=== PATIENT | male | born 1985 | race Caucasian/White ===

== ENCOUNTER 2016-09-03 13:32 | Emergency (ER) | payer OTHER ==
[2016-09-03 13:43] VITALS: BP 137/77
[2016-09-03] MEDS ORDERED: Aspirin 81 MG Tab.Chew PO ONE (14:03)
[2016-09-03] MEDS ORDERED: Sodium Chloride 0.9% 10 ML Syringe FLUSH PRN (14:03)
--- NOTE | 2016-09-03 14:09 | EDM.PDOC ---
ED HISTORY OF PRESENT ILLNESS - General Chief Complaint: Chest Pain Stated Complaint: CHEST PAIN X 2 HOURS Time Seen by Provider: 09/03/16 13:51 Source of Information: Reports: Patient History Limitations: Reports: No limitations - History of Present Illness INITIAL COMMENTS - FREE TEXT/NARRATIVE: Patient is a 22-year-old male presents ED complaining of substernal chest discomfort with radiation to his left neck, left shoulder/arm, and back. States discomfort described as a sharp dull achy sensation worsened with sitting also taking a deep breath. There is no aggravation with her she normally in his upper extremities. States this came on this morning at approximately 9:[address] Patient works as a chief deputy. Discomfort persisted which is abnormal. He does have a history of similar symptoms in the past that resolved after a few minutes. States he became concerned because of the chronicity of it. Thus the patient is here for cardiac rule out. States the pain is rated a 4/10 at its peak. Currently the pain is a 0/10 has resolved with admission to the ED. Denies any diaphoresis, shortness of breath, nausea vomiting, fever/chills, dizziness, recent trauma/ activities, or acid reflux. He has no previous past medical history and is currently taking no medications. Patient does not smoke and only occasionally utilizes alcohol. Denies any first degree relatives with heart disease. Timing/Duration: Reports: Intermittent, Resolved prior to arrival Severity: moderate Location, General: Reports: neck, chest, back, upper extremity, left Quality: Reports: Ache, Sharp Improves with: Reports: None Worsens with: Reports: Other (Sitting) Context, General: Reports: Other (None stated) Associated Symptoms (General): Reports: chest pain. Denies: cough, fever/chills , malaise, nausea/vomiting, shortness of breath Treatments END WORKER: Reports: Other (see below) (None stated) - Related Data Allergies/ADRs: Allergies Allergy/AdvReac Type Severity Reaction Status Date / Time Sulfa (Sulfonamide Allergy Cannot Verified 08/30/15 02:04 Antibiotics) Remember Home Meds: Home Meds . [No Known Home Meds] 09/03/16 [History] Past Medical History - Past Health History Medical/Surgical History: Denies Medical/Surgical History Musculoskeletal History: Reports: Other (see below) Other Musculoskeletal History: left ankle surgery x 3 Endocrine/Metabolic History: Reports: Obesity/BMI 30+ - Infectious Disease History Infectious Disease History: Reports: Chicken pox - Past Surgical History GI Surgical History: Reports: Appendectomy Endocrine Surgical History: Reports: None Social & Family History - Family History HEENT: Reports: Cataract, Other (see below) Other HEENT Family History: grandma Respiratory: Reports: COPD, Other (see below) Other Respiratory Family Hisory: mother Neurological: Reports: Alzheimers disease, Other (see below) Other Neurological Family History: grandpa Psychiatric: Reports: ADD, Bipolar, Schizophrenia, Other (see below) Other Psychiatric Family History: younger brother Oncologic: Reports: Skin, Other (see below) Other Oncologic Family History: grandma - Tobacco Use Smoking Status *Q: Former Smoker Years of Tobacco use: 10 Packs/Tins Daily: 0.1 Used Tobacco, but Quit: Yes Month Tobacco Last Used: 1 month - Caffeine Use Caffeine Use: Reports: Coffee - Alcohol Use Days Per Week of Alcohol Use: 1 Number of Drinks Per Day: 0 Total Drinks Per Week: 0 - Recreational Drug Use Recreational Drug Use: No ED ROS GENERAL - Review of Systems Review Of Systems: See Below Constitutional: Reports: no symptoms HEENT: Reports: No symptoms Respiratory: Reports: Pleuritic Chest Pain. Denies: Shortness of Breath, Cough , Sputum Cardiovascular: Reports: Chest pain. Denies: Dyspnea on exertion, Palpitations GI/Abdominal: Reports: No symptoms Musculoskeletal: Reports: neck pain, back pain, other (Left arm) Neurological: Reports: No Symptoms ED EXAM, GENERAL - Physical Exam Exam: See Below Exam Limited By: No limitations General Appearance: alert, WD/WN, no apparent distress Ears: hearing grossly normal Nose: normal inspection Throat/Mouth: Normal voice, No airway compromise Neck: normal inspection, supple, non-tender, full range of motion. No: carotid bruit Respiratory/Chest: no respiratory distress, lungs clear, normal breath sounds, no accessory muscle use, chest non-tender Cardiovascular: normal peripheral pulses, regular rate, rhythm, no murmur Peripheral Pulses: 2+: radial (R), 4+: dorsalis pedis (R) GI/Abdominal: normal bowel sounds, soft, non tender, no organomegaly, no distention, no abnormal bruit, other (Negative lee, mcburney, and epigastric pain. ) Back Exam: normal inspection, full range of motion. No: CVA tenderness (L), CVA tenderness (R) Extremities: normal inspection, normal range of motion, non-tender, no pedal edema, normal capillary refill Neurological: alert, oriented, CN II-XII intact, normal cognition, no motor/ sensory deficits Psychiatric: normal affect, normal mood Skin Exam: Warm, Dry, Intact, Normal color Course - Vital Signs Last Recorded V/S: Last Vital Signs Temp 97.9 F 09/03/16 13:41 Pulse 73 09/03/16 13:41 Resp 18 09/03/16 13:41 BP 137/77 09/03/16 13:41 Pulse Ox 96 09/03/16 13:41 - Orders/Labs/Meds Orders: Active Orders 24 hr Category Date Time Status EKG 12 Lead [EKG Documentation Completion] [] STAT Care 09/03/16 14:08 Active Peripheral IV Care [RC] . DIRECTED Care 09/03/16 14:03 Active Sodium Chloride 0.9% [Saline Flush] Med 09/03/16 14:03 Active 10 ml FLUSH ASDIRECTED PRN Peripheral IV Insertion Adult [OM.PC] Stat Oth 09/03/16 14:03 Ordered Medication Orders Sodium Chloride (Saline Flush) 10 ml FLUSH ASDIRECTED PRN PRN Reason: Keep Vein Open Last Admin: 09/03/16 14:27 Dose: 10 ml Labs: Laboratory Tests 09/03/16 09/03/16 Range/Units 14:25 14:25 WBC 14.73 H (4.23-9.07) K/mm3 RBC 5.43 (4.63-6.08) M/mm3 Hgb 15.6 (13.7-17.5) gm/L Hct 46.9 (40.1-51.0) % MCV 86.4 (79.0-92.2) fl MCH 28.7 (25.7-32.2) pg MCHC 33.3 (32.2-35.5) g/dl RDW Std Deviation 41.3 (35.1-43.9) fL Plt Count 320 (163-337) K/mm3 MPV 9.0 L (9.4-12.3) fl Neut % (Auto) 63.1 (34.0-67.9) % Lymph % (Auto) 27.0 (21.8-53.1) % [place] % (Auto) 8.3 (5.3-12.2) % Eos % (Auto) 1.1 (0.8-7.0) Baso % (Auto) 0.3 (0.1-1.2) % Neut # (Auto) 9.29 H (1.78-5.38) K/mm3 Lymph # (Auto) 3.98 H (1.32-3.57) K/mm3 [place] # (Auto) 1.22 H (0.30-0.82) K/mm3 Eos # (Auto) 0.16 (0.04-0.54) K/mm3 Baso # (Auto) 0.05 (0.01-0.08) K/mm3 Sodium 141 (136-145) mEq/L Potassium 4.0 (3.5-5.1) mEq/L Chloride 105 (98-107) mEq/L Carbon Dioxide 26 (21-32) mEq/L Anion Gap 14.0 (5-15) BUN 12 (7-18) mg/dL Creatinine 0.8 (0.7-1.3) mg/dL Est Cr Clr Drug Dosing 133.00 mL/min Estimated GFR (MDRD) > 60 (>60) mL/min BUN/Creatinine Ratio 15.0 (14-18) Glucose 82 (74-106) mg/dL Calcium 9.8 (8.5-10.1) mg/dL Total Bilirubin 0.4 (0.2-1.0) mg/dL AST 38 H (15-37) U/L ALT 82 H (16-63) U/L Alkaline Phosphatase 70 (46-116) U/L Troponin I < 0.017 (0.00-0.056) ng/mL C-Reactive Protein 0.8 (<1.0) mg/dL Total Protein 7.8 (6.4-8.2) g/dl Albumin 3.7 (3.4-5.0) g/dl Globulin 4.1 gm/dL Albumin/Globulin Ratio 0.9 L (1-2) Meds: Medications Generic Name Dose Route Start Last Admin Trade Name Freq PRN Reason Stop Dose Admin Sodium Chloride 10 ml 09/03/16 14:03 09/03/16 14:27 Saline Flush FLUSH 10 ml ASDIRECTED PRN Administration Keep Vein Open Discontinued Medications Generic Name Dose Route Start Last Admin Trade Name Ric PRN Reason Stop Dose Admin Aspirin 324 mg 09/03/16 14:03 09/03/16 14:27 Aspirin PO 09/03/16 14:04 324 mg ONETIME ONE Administration Al Hydroxide/Mg Hydroxide 30 0 ml 09/03/16 15:32 09/03/16 15:40 ml/ Lidocaine HCl 15 ml PO 09/03/16 15:33 45 ml ONETIME ONE Administration - Re-Assessments/Exams Free Text/Narrative Re-Assessment/Exam: Order peripheral IV. Initial lab studies include CBC, chem 14, CRP, troponin, chest x-ray two-view. Also ordered aspirin 324 mg by mouth and also GI cocktail. 09/03/16 14:06 09/03/16 14:32 EKG revealed a sinus rhythm at a rate of 68 with normal P axis, NM interval is 172, QTC 422, borderline left axis deviation, ST elevation probable normal early repolarization pattern. 09/03/16 15:23 White blood cell count 14.73, hemoglobin is 15.6, neutrophil number is 9.9, sodium 141, potassium 4.0, creatinine 0.8, AST 38, ALT 82, troponin less than 0.017, and CRP 0.8. Chest x-ray impression: Nothing acute is seen on two-view chest x-ray. 09/03/16 15:57 patient received a GI cocktail and noticed some relief to his symptoms. Currently symptom free. Unclear the etiology of patient's discomfort. May related to acid reflux with his intermittent symptoms. Will discharge patient with instructions as documented. Departure - Departure Time of Disposition: 15:58 Disposition: Home, Self-Care 01 Clinical Impression: Elevated LFTs, Atypical chest pain Gastritis Qualifiers: Gastritis type: unspecified gastritis Chronicity: acute Gastritis bleeding: without bleeding Qualified Code(s): K29.00 - Acute gastritis without bleeding Instructions: Nonspecific Chest Pain, [id number] Referrals: Oni Lemus [Physician] - Forms: ED Department Discharge Additional Instructions: As discussed unclear the etiology of recurrent discomfort. Suspect this is related to acid reflux since you had some relief with the GI cocktail. All your other testing to rule out cardiac etiology were negative. In addition labs revealed mild elevated liver enzymes with unclear reason. Will have you take Prilosec 40 mg everyday for the next 2 weeks with decreasing thereafter to one tab every day. Refrain from any spicy foods, caffeinated beverages, or eating 4 hours within going to bed. Followup with Dr. Lemus at [facility] for further evaluation within the next week. Call tomorrow for appointment. Return back to the ED if he experience any new or worsening symptoms as discussed. - My Orders Last 24 Hours: My Active Orders 09/03/16 14:03 Peripheral IV Care [RC] . DIRECTED Sodium Chloride 0.9% [Saline Flush] 10 ml FLUSH ASDIRECTED PRN Peripheral IV Insertion Adult [OM.PC] Stat 09/03/16 14:08 EKG 12 Lead [EKG Documentation Completion] [RC] STAT - Assessment/Plan Last 24 Hours: My Active Orders 09/03/16 14:03 Peripheral IV Care [RC] . DIRECTED Sodium Chloride 0.9% [Saline Flush] 10 ml FLUSH ASDIRECTED PRN Peripheral IV Insertion Adult [OM.PC] Stat 09/03/16 14:08 EKG 12 Lead [EKG Documentation Completion] [RC] STAT
--- NOTE | 2016-09-03 14:46 | CR ---
Chest: 2 views of the chest were obtained. Comparison: Previous chest x-ray of 08/31/15. Chest is improved from prior study. Lungs are currently clear. Heart size and mediastinum are within normal limits. Bony structures are unremarkable. Impression: 1. Nothing acute is seen on 2 view chest x-ray. Diagnostic code #1
[2016-09-03] MEDS ORDERED: Alum Hydrox/Mag Hydrox/Simeth 30 ML, Lidocaine 2% 15 ML PO ONE ×2 (15:32)
== END 2016-09-03 16:17 | disposition home or self-care (01) ==
LOC: JD.ED 13:32
DX: K29.00 Acute gastritis without bleeding (principal); R79.89 Other specified abnormal findings of blood chemistry; E66.9 Obesity, unspecified; Z88.2 Allergy status to sulfonamides; Z90.49 Acquired absence of other specified parts of digestive tract; Z87.891 Personal history of nicotine dependence
CPT/HCPCS: 36415; 71020; 80053; 84484; 85025; 86140; 93005; 99285; A9270; J7050; 99284